=== PATIENT | female | born 1965 ===

== ENCOUNTER 2020-07-15 12:00 | Emergency (ER) | payer OTHER ==
[2020-07-15 12:08] VITALS: BP 158/83; PULSE 82; TEMP 98; BMI 30.2
[2020-07-15] MEDS ORDERED: KETOROLAC TROMETHAMINE 30 MG/1 ML VIAL IM ONE (13:08)
[2020-07-15] MEDS ORDERED: LIDOCAINE 5% TOPICAL PATCH TP ONE (13:08)
[2020-07-15] MEDS ORDERED: KETOROLAC TROMETHAMINE 30 MG/1 ML VIAL ONE (13:19)
[2020-07-15] MEDS ORDERED: LIDOCAINE 5% TOPICAL PATCH ONE (13:19)
[2020-07-15 13:37] LABS: URINE APPEARANCE CLEAR; URINE BILIRUBIN NEGATIVE (NEGATIVE); URINE COLOR YELLOW; URINE GLUCOSE (UA) NEGATIVE (NEGATIVE); URINE KETONE NEGATIVE (NEGATIVE); URINE LEUK ESTERASE NEGATIVE (NEGATIVE); URINE NITRITE NEGATIVE (NEGATIVE); URINE PROTEIN NEGATIVE (NEGATIVE); URINE UROBILINOGEN 0.2 mg/dL (0.2-1.0)
[2020-07-15] MEDS ORDERED: LIDOCAINE PATCH REMOVAL MC ONE (22:00)
== END 2020-07-15 14:35 | disposition home or self-care (01) ==
LOC: JER 12:00
PROC: 3E0233Z Introduction of Anti-inflammatory into Muscle, Percutaneous Approach (ICD-10-PCS; principal; 2020-07-15)
DX: S39.011A Strain of muscle, fascia and tendon of abdomen, initial encounter (principal)
CPT/HCPCS: 71046-TC-FY; 71101-TC-LT-FY; 81003; 99285-25